=== PATIENT | female | born 1990 | race Caucasian/White ===

== ENCOUNTER 2021-11-09 21:45 | Emergency (ER) | payer OTHER ==
[~2021-11-09] VITALS: Ht 170.2 cm; Wt 44.9 kg
--- NOTE | 2021-11-09 21:55 | NUR ---
Dr. Hu examining patient.
[2021-11-09 21:56] VITALS: BP 123/74
--- NOTE | 2021-11-09 22:12 | NUR ---
Blood for labwork drawn from left arm per waiter. Patient tolerated well.
--- NOTE | 2021-11-09 22:27 | NUR ---
Patient ambulated to bed 11.
--- NOTE | 2021-11-09 22:36 | NUR ---
ultrasound at bedside
--- NOTE | 2021-11-09 22:53 | NUR ---
Female Coal Trimmer accompanied female patient for Ultrasound.
[2021-11-09 22:54] LABS: BASOPHILS % (AUTO) 0.4 % (0.0-2.0); EOSINOPHILS # (AUTO) 0.2 K/uL (0-0.4); EOSINOPHILS % (AUTO) 1.8 % (0.0-4.0); HEMATOCRIT 39.7 % (36-48); HEMOGLOBIN 13.1 g/dL (12.0-16.0); LYMPHOCYTES # (AUTO) 2.4 K/uL (2.5-16.5); LYMPHOCYTES % (AUTO) 27.2 % (20.5-51.1); MEAN CORPUSCULAR HEMOGLOBIN 29 pg (27-31); MEAN CORPUSCULAR HGB CONC 33 g/dL (33-37); MEAN CORPUSCULAR VOLUME 86.5 fL (80-94); MONOCYTES # (AUTO) 0.7 K/uL (0.8-1.0); MONOCYTES % (AUTO) 8.2 % (1.7-9.3); NEUTROPHILS # (AUTO) 5.5 K/uL (1.8-7.7); NEUTROPHILS % (AUTO) 62.4 % (42.2-75.2); PLATELET COUNT (AUTO) 259 K/uL (140-450); RED BLOOD CELL COUNT(AUTO) 4.59 MIL/uL (4.20-5.40); RED CELL DISTRIBUTION WIDTH 13.5 % (11.6-13.7); WHITE BLOOD COUNT (AUTO) 8.8 K/uL (4.8-10.8)
[2021-11-09 23:21] LABS: APPEARANCE,URINE CLEAR (CLEAR); BILIRUBIN,URINE NEGATIVE (NEGATIVE); BLOOD, URINE 3+ (NEGATIVE); COLOR,URINE YELLOW (YELLOW); LEUKOCYTE ESTERASE ,URINE NEGATIVE (NEGATIVE); NITRITE, URINE NEGATIVE (NEGATIVE); PH,URINE 5.5 (5.0-9.0); UGLUCOSE NEGATIVE (NEGATIVE)
[2021-11-09 23:59] LABS: RBC,URINE 20-50 /HPF (0-5); WBC,URINE 0-5 /HPF (0-5)
[2021-11-10 00:52] VITALS: BP 120/62
--- NOTE | 2021-11-10 00:52 | NUR ---
Patient discharged. Written and verbal after care instructions given and explained miscarriage. Patient verbalized understanding. Ambulatory with steady gait. All questions addressed prior to discharge. Advised to follow up with PMD.
== END 2021-11-10 00:52 | disposition home or self-care (01) ==
LOC: MED 21:45
DX: O03.9 Complete or unspecified spontaneous abortion without complication (principal); Z3A.01 Less than 8 weeks gestation of pregnancy
CPT/HCPCS: 36415; 76817; 81001; 84702; 85025; 86900; 86901; 99284; Q0092